=== PATIENT | female | born 1940 | race African-American/Black ===

== ENCOUNTER 2018-05-12 11:07 | Day surgery (SDC) | payer OTHER ==
[2018-05-12] MEDS ORDERED: BUPIVACAINE-EPI 0.25%-1:200000 50 ML VIAL. (11:22)
[2018-05-12] MEDS ORDERED: PROCHLORPERAZINE 10 MG/2 ML VIAL. IV (11:30)
[2018-05-12] MEDS ORDERED: ONDANSETRON PF 4 MG/2 ML VIAL. IV (11:30)
[2018-05-12] MEDS ORDERED: LIDOCAINE 1% PF 2 ML VIAL. ID (11:30)
[2018-05-12] MEDS ORDERED: MORPHINE SULFATE 2 MG/ML DISP.SYRIN. IV (11:30)
[2018-05-12 11:51] LABS: ADD MAN DIFF? NO
[2018-05-12] MEDS: IV RINGERS,LACTATED 1000ML 1,000 ML IV (11:52)
[2018-05-12 11:55] LABS: BASO # 0.1 x10^3/uL (0.0-0.2); BASO % 1 % (0-3); EOS # 0.1 x10^3/uL (0.0-0.7); EOS % 1 % (0-3); HEMATOCRIT 44.5 % (36.0-47.0); LYMPH # 1.7 x10^3/uL (1.0-4.8); LYMPH % 27 % (24-48); MEAN CORPUSCULAR HEMOGLOBIN 27 pg (25-35); MEAN CORPUSCULAR HGB CONC 34 g/dL (31-37); MEAN CORPUSCULAR VOLUME 81 fL (79-100); MONO # 1.1 x10^3/uL (0.0-1.1); MONO % 18 % (0-9); NEUT # 3.5 x10^3uL (1.8-7.7); NEUT % 53 % (31-73); PLATELET COUNT 203 x10^3/uL (140-400); RED BLOOD COUNT 5.46 x10^6/uL (3.50-5.40); RED CELL DISTRIBUTION WIDTH 14.3 % (11.5-14.5); WHITE BLOOD COUNT 6.5 x10^3/uL (4.0-11.0)
[2018-05-12 12:06] LABS: ANION GAP 9 (6-14); BLOOD UREA NITROGEN 18 mg/dL (7-20); BUN/CREATININE RATIO 11 (6-20); CALCIUM 8.3 mg/dL (8.5-10.1); CARBON DIOXIDE 27 mmol/L (21-32); CHLORIDE 107 mmol/L (98-107); CREATININE 1.6 mg/dL (0.6-1.0); GFR 37.9; GLUCOSE 99 mg/dL (70-99); POTASSIUM 3.6 mmol/L (3.5-5.1); SODIUM 143 mmol/L (136-145)
[2018-05-12 12:07] LABS: INR 1.1 (0.8-1.1); PROTHROMBIN TIME PATIENT 13.4 SEC (11.7-14.0)
[2018-05-12 12:13] LABS: ALBUMIN 3.6 g/dL (3.4-5.0); ALBUMIN/GLOBULIN RATIO 0.9 (1.0-1.7); ALK PHOS 79 U/L (46-116); ALT (SGPT) 51 U/L (14-59); AST (SGOT) 27 U/L (15-37); TOTAL BILIRUBIN 0.9 mg/dL (0.2-1.0); TOTAL PROTEIN 7.5 g/dL (6.4-8.2)
[2018-05-12] MEDS ORDERED: fentaNYL PF VIAL 100 MCG/2 ML VIAL (12:28)
[2018-05-12] MEDS ORDERED: PROPOFOL 20 ML IV (12:28)
[2018-05-12] MEDS ORDERED: SEVOFLURANE 61 TO 120 MINUTES. IH (12:29)
[2018-05-12] MEDS ORDERED: TRIAMCINOLONE ACETONIDE 40 MG/ML VIAL. IM (12:45)
[2018-05-12] MEDS ORDERED: ONDANSETRON PF 4 MG/2 ML VIAL. (12:52)
[2018-05-12] MEDS ORDERED: KETOROLAC 30 MG/ML INJ FOR OR. INJ (12:52)
[2018-05-12] MEDS ORDERED: DEXAMETHASONE SOD PHOS 20 MG/5 ML VIAL. (12:52)
[2018-05-12] MEDS ORDERED: ceFAZolin SODIUM 1 GM VIAL (12:53)
[2018-05-12] MEDS ORDERED: PHENYLEPHRINE in 0.9% NACL PF 1 MG/10 ML SYRINGE. IV (13:20)
[2018-05-12] MEDS: fentaNYL PF VIAL 100 MCG/2 ML VIAL IV ×4 (14:43→15:21)
[2018-05-12] MEDS: oxyCODONE/APAP 5/325 1 TAB TABLET PO (15:46)
== END 2018-05-12 16:10 | disposition home or self-care (01) ==
LOC: SURG 11:07
DX: L91.0 Hypertrophic scar (principal); L72.0 Epidermal cyst; M51.86 Other intervertebral disc disorders, lumbar region; I25.10 Atherosclerotic heart disease of native coronary artery without angina pectoris; I10 Essential (primary) hypertension; Z95.818 Presence of other cardiac implants and grafts; Z87.891 Personal history of nicotine dependence; Z79.82 Long term (current) use of aspirin; Z79.899 Other long term (current) drug therapy; Z87.448 Personal history of other diseases of urinary system
CPT/HCPCS: 11406; 36415; 80053; 85025; 85610; 88305; A7015; J0690; J1100; J1885; J2370; J2405; J2704; J3010; J3301